=== PATIENT | male | born 1965 | race African-American/Black ===

== ENCOUNTER 2018-07-27 06:11 | Inpatient (IN) ==
[2018-07-27] MEDS ORDERED: ASPIRIN 325 MG TABLET PO STA (06:34)
[2018-07-27] MEDS ORDERED: ALBUTEROL 2.5 MG/3 ML NEB RESP TX STA (06:35)
[2018-07-27] MEDS ORDERED: FUROSEMIDE 40 MG/4 ML VIAL IV STA (06:36)
[2018-07-27 07:21] LABS: Basophils # 0.1 10*3/uL (0.0-0.2); Basophils % 1.1 % (0.0-0.8); Eosinophils # 0.2 10*3/uL (0.0-0.87); Eosinophils % 2.4 % (0.00-10.9); Hematocrit 51.1 VOL% (42.0-52.0); Hemoglobin 16.1 GM/DL (14.0-18.0); Immature Granulocytes % 0.5 %; Immature Granulocytes Absolute 0.03 #; Lymphocytes # 3.1 10*3/uL (1.4-4.0); Lymphocytes % 46.3 % (21.2-54.2); Mean Corpuscular HGB Conc 31.5 GM/DL (32-36); Mean Corpuscular Hemoglobin 29 PG (27-34); Mean Corpuscular Volume 90.8 FL (87-102); Mean Platelet Volume 10.4 FL (9.6-12.0); Monocytes # 0.6 10*3/uL (0.11-0.8); Neutrophils # 2.7 10*3/uL (1.4-7.4); Neutrophils % 40.7 % (38.7-73.9); Platelet Count 238 T/CUMM (130-400); Red Blood Count 5.63 MC/CUMM (3.8-5.5); Red Cell Distribution Width 15.3 % (9.3-17.3); White Blood Count 6.6 T/CUMM (4-12)
[2018-07-27] MEDS ORDERED: hydrALAZINE 20 MG/1 ML VIAL IV STA (07:24)
[2018-07-27 07:46] LABS: Calcium 8.6 MG/DL (8.5-10.1); Osmolality,Calculated 276.5 MOS/KG (273-304); Potassium 5.2 MMOL/L (3.5-5.1)
[2018-07-27 08:07] LABS: Apearance,Urine CLEAR (Clear); Bilirubin,Urine Negative (Negative); Blood, Urine Small mg/dL (Negative); Glucose,Urine (UA) Negative (Negative); Ketones,Urine Negative (Negative); Mucus,Urine Occasional /LPF (Occasional); Nitrite,Urine Negative (Negative); Protein,Urine 100 MG/DL; RBC,Urine 1 /HPF (0-4); Urine Color Yellow (Yellow); Urine Specific Gravity 1.009 (1.001-1.035); Urine Urobilinogen < 2.0 EU/DL (0.2-1.0)
[2018-07-27 08:40] LABS: Barbiturates Screen,Urine Negative (Negative); Benzodiazepines Screen,Urine Negative (Negative); Cannabinoid Screen,Urine Negative (Negative); Opiate Screen,Urine Negative (Negative); Phencyclidine Screen,Urine Negative (Negative)
[2018-07-27] MEDS ORDERED: DOCUSATE SODIUM 100 MG CAPSULE PO PRN (11:31)
[2018-07-27] MEDS ORDERED: ACETAMINOPHEN 325 MG TABLET PO PRN (11:31)
[2018-07-27] MEDS ORDERED: ONDANSETRON 4 MG/2 ML VIAL IV PRN (11:31)
[2018-07-27] MEDS: LEVOFLOXACIN INJ 750 MG in PREMIX 1 EACH IV SCH (12:00)
[2018-07-27] MEDS: ALBUTEROL/IPRATROPIUM 3 ML NEB RESP TX SCH ×3 (12:00→19:07)
[2018-07-27 12:10] LABS: Thyroid Stimulating Hormone 6.25 uIU/ml (0.358-3.74)
[2018-07-27 12:38] LABS: Risk Ratio 2.89; VLDL CHOLESTEROL 17.4 MG/DL
[2018-07-27] MEDS ORDERED: NICOTINE 21 MG/24 HR PATCH TRANSDERM PRN (14:00)
[2018-07-27] MEDS: PIPERACILLIN/TAZOBACTAM 3,375 MG in SODIUM CHLORIDE 0.9% 100 ML IV SCH ×2 (14:05→21:18)
[2018-07-27] MEDS: VANCOMYCIN INJ 1,000 MG in SODIUM CHLORIDE 0.9% 250 ML IV SCH (18:13)
[2018-07-27] MEDS: ENOXAPARIN 40 MG/0.4 ML SYRINGE SUBCUT SCH (21:18)
[2018-07-27] MEDS: FUROSEMIDE 40 MG/4 ML VIAL IV SCH (21:19)
[2018-07-28] MEDS: ALBUTEROL/IPRATROPIUM 3 ML NEB RESP TX SCH ×4 (01:24→19:17)
[2018-07-28] MEDS: PIPERACILLIN/TAZOBACTAM 3,375 MG in SODIUM CHLORIDE 0.9% 100 ML IV SCH ×3 (04:56→20:05)
[2018-07-28 05:19] LABS: Basophils # 0.1 10*3/uL (0.0-0.2); Basophils % 0.9 % (0.0-0.8); Eosinophils # 0.2 10*3/uL (0.0-0.87); Eosinophils % 2.5 % (0.00-10.9); Hematocrit 44.4 VOL% (42.0-52.0); Hemoglobin 14.6 GM/DL (14.0-18.0); Immature Granulocytes % 0.3 %; Immature Granulocytes Absolute 0.02 #; Lymphocytes # 2.6 10*3/uL (1.4-4.0); Lymphocytes % 41.3 % (21.2-54.2); Mean Corpuscular HGB Conc 32.9 GM/DL (32-36); Mean Corpuscular Hemoglobin 29 PG (27-34); Mean Corpuscular Volume 87.4 FL (87-102); Mean Platelet Volume 10.1 FL (9.6-12.0); Monocytes # 0.7 10*3/uL (0.11-0.8); Monocytes % 10.9 % (1.7-12.7); Neutrophils # 2.8 10*3/uL (1.4-7.4); Neutrophils % 44.1 % (38.7-73.9); Platelet Count 235 T/CUMM (130-400); Red Blood Count 5.08 MC/CUMM (3.8-5.5); Red Cell Distribution Width 14.7 % (9.3-17.3); White Blood Count 6.3 T/CUMM (4-12)
[2018-07-28 05:42] LABS: Albumin 2.5 G/DL (3.4-5.0); Bilirubin,Total 0.9 MG/DL (0.2-1.0); Calcium 8.4 MG/DL (8.5-10.1); Osmolality,Calculated 278.5 MOS/KG (273-304); Potassium 3.6 MMOL/L (3.5-5.1); Total Protein 6.6 G/DL (6.4-8.3)
[2018-07-28 08:20] LABS: INR 1.3; PT Patient Result 14.2 SECS
[2018-07-28] MEDS: LEVOFLOXACIN INJ 750 MG in PREMIX 1 EACH IV SCH (09:19)
[2018-07-28] MEDS: FUROSEMIDE 40 MG/4 ML VIAL IV SCH ×2 (13:42→21:13)
[2018-07-28] MEDS: VANCOMYCIN INJ 1,000 MG in SODIUM CHLORIDE 0.9% 250 ML IV SCH ×2 (13:50→15:10)
[2018-07-28 15:18] LABS: Albumin 2.6 G/DL (3.4-5.0); Total Protein 6.8 G/DL (6.4-8.3)
[2018-07-28] MEDS: FOLIC ACID 1 MG TABLET PO SCH (16:54)
[2018-07-28] MEDS: THIAMINE 200 MG/2 ML VIAL IV SCH (16:54)
[2018-07-28] MEDS: PANTOPRAZOLE 40 MG TABLET PO SCH (16:54)
[2018-07-28 20:34] LABS: Lymphocytes,Pleural Fluid 82 %; Neutrophils,Pleural Fluid 18 %; RBC,Pleural Fluid 65 T/CUMM
[2018-07-28] MEDS: ENOXAPARIN 40 MG/0.4 ML SYRINGE SUBCUT SCH (21:13)
[2018-07-29] MEDS: ALBUTEROL/IPRATROPIUM 3 ML NEB RESP TX SCH ×4 (01:28→18:57)
[2018-07-29] MEDS: PIPERACILLIN/TAZOBACTAM 3,375 MG in SODIUM CHLORIDE 0.9% 100 ML IV SCH (04:44)
[2018-07-29 04:53] LABS: Basophils # 0.1 10*3/uL (0.0-0.2); Basophils % 0.8 % (0.0-0.8); Eosinophils # 0.2 10*3/uL (0.0-0.87); Eosinophils % 2.9 % (0.00-10.9); Hematocrit 45.4 VOL% (42.0-52.0); Hemoglobin 14.9 GM/DL (14.0-18.0); Immature Granulocytes % 0.3 %; Immature Granulocytes Absolute 0.02 #; Lymphocytes # 2.2 10*3/uL (1.4-4.0); Lymphocytes % 35.4 % (21.2-54.2); Mean Corpuscular HGB Conc 32.8 GM/DL (32-36); Mean Corpuscular Hemoglobin 28 PG (27-34); Mean Corpuscular Volume 86.5 FL (87-102); Mean Platelet Volume 10.1 FL (9.6-12.0); Monocytes # 0.7 10*3/uL (0.11-0.8); Monocytes % 11.6 % (1.7-12.7); Neutrophils # 3.1 10*3/uL (1.4-7.4); Platelet Count 246 T/CUMM (130-400); Red Blood Count 5.25 MC/CUMM (3.8-5.5); Red Cell Distribution Width 14.6 % (9.3-17.3); White Blood Count 6.3 T/CUMM (4-12)
[2018-07-29 05:28] LABS: Albumin 2.5 G/DL (3.4-5.0); Bilirubin,Total 0.8 MG/DL (0.2-1.0); Osmolality,Calculated 274.8 MOS/KG (273-304); Total Protein 6.8 G/DL (6.4-8.3)
[2018-07-29] MEDS: VANCOMYCIN INJ 1,000 MG in SODIUM CHLORIDE 0.9% 250 ML IV SCH (06:21)
[2018-07-29] MEDS: FUROSEMIDE 40 MG/4 ML VIAL IV SCH ×2 (09:44→21:06)
[2018-07-29] MEDS: PANTOPRAZOLE 40 MG TABLET PO SCH (09:45)
[2018-07-29] MEDS: THIAMINE 200 MG/2 ML VIAL IV SCH (09:47)
[2018-07-29] MEDS: LEVOFLOXACIN INJ 750 MG in PREMIX 1 EACH IV SCH (09:52)
[2018-07-29] MEDS: FOLIC ACID 1 MG TABLET PO SCH (09:52)
[2018-07-29] MEDS ORDERED: POTASSIUM CHLORIDE 20 MEQ TABLET PO ONE (17:49)
[2018-07-29] MEDS: ENOXAPARIN 40 MG/0.4 ML SYRINGE SUBCUT SCH (21:06)
[2018-07-30] MEDS: ALBUTEROL/IPRATROPIUM 3 ML NEB RESP TX SCH ×3 (00:28→12:55)
[2018-07-30 05:52] LABS: Basophils # 0.1 10*3/uL (0.0-0.2); Basophils % 1.2 % (0.0-0.8); Eosinophils # 0.3 10*3/uL (0.0-0.87); Eosinophils % 5.1 % (0.00-10.9); Hematocrit 48.9 VOL% (42.0-52.0); Hemoglobin 15.8 GM/DL (14.0-18.0); Immature Granulocytes % 0.4 %; Immature Granulocytes Absolute 0.02 #; Lymphocytes # 2.1 10*3/uL (1.4-4.0); Lymphocytes % 41.6 % (21.2-54.2); Mean Corpuscular HGB Conc 32.3 GM/DL (32-36); Mean Corpuscular Hemoglobin 29 PG (27-34); Mean Corpuscular Volume 88.9 FL (87-102); Mean Platelet Volume 9.6 FL (9.6-12.0); Monocytes # 0.7 10*3/uL (0.11-0.8); Monocytes % 13.7 % (1.7-12.7); Neutrophils # 1.9 10*3/uL (1.4-7.4); Platelet Count 251 T/CUMM (130-400); Red Cell Distribution Width 14.8 % (9.3-17.3)
[2018-07-30 06:11] LABS: Albumin 2.6 G/DL (3.4-5.0); Bilirubin,Total 0.6 MG/DL (0.2-1.0); Calcium 8.2 MG/DL (8.5-10.1); Potassium 3.4 MMOL/L (3.5-5.1); Total Protein 7.1 G/DL (6.4-8.3)
[2018-07-30 06:27] LABS: Eosinophils 3 % (0-10); Hypochromasia 1+; Lymphocytes 45 % (20-55); Platelet Estimate Adequate; Segmented Neutrophils 46 % (50-85); Total Cells Counted 100
[2018-07-30] MEDS ORDERED: POTASSIUM CHLORIDE 20 MEQ TABLET PO ONE (08:00)
[2018-07-30] MEDS ORDERED: MAGNESIUM SULF RIDER 2 GM in PREMIX 1 EACH IV ONE (08:01)
[2018-07-30] MEDS: FOLIC ACID 1 MG TABLET PO SCH (08:51)
[2018-07-30] MEDS: FUROSEMIDE 40 MG/4 ML VIAL IV SCH (08:51)
[2018-07-30] MEDS: PANTOPRAZOLE 40 MG TABLET PO SCH (08:52)
[2018-07-30] MEDS: LEVOFLOXACIN INJ 750 MG in PREMIX 1 EACH IV SCH (08:52)
[2018-07-30] MEDS: THIAMINE 200 MG/2 ML VIAL IV SCH (08:52)
[2018-07-30 11:13] VITALS: BP 98/70
== END 2018-07-30 12:57 | disposition home or self-care (01) | DRG 291 ==
LOC: EDBD → N.ED 06:11 → SUATTDRO 09:27 → N.EDINP 09:27 → N.3E 13:09
PROVIDERS: ADMIT Internal Medicine; ATTEND Internal Medicine